=== PATIENT | female | born 1950 | race Caucasian/White ===

== ENCOUNTER 2020-02-20 10:11 | Inpatient (IN) | payer OTHER, MEDICAID, SELFPAY ==
[~2020-02-20] VITALS: Ht 172.7 cm; Wt 72.6 kg
[2020-02-20 10:11] VITALS: BP_SYST 146
--- NOTE | 2020-02-20 10:40 | NUR ---
Pt bib EMS from home with c/o headache and pressure x 1 year, increasing this week. Reports being seen by ENT and it hasn't gotten better. States she tested positive for covid 1 week ago. V/S stable, pt is afebrile. Currently resting in bed, will continue to monitor.
--- NOTE | 2020-02-20 10:45 | NUR ---
ER Dr. Navarrete at bedside examining patient.
--- NOTE | 2020-02-20 10:50 | NUR ---
Respiratory at bedside for ABG
--- NOTE | 2020-02-20 10:55 | NUR ---
# 20 gauge angiocath placed to LAC. Use of asceptic technique. Opsite placed over site. Blood return noted. Blood for lab drawn from site. Flushed with 10 cc of normal saline. No evidence of infiltration noted. Patient tolerated well.
[2020-02-20] MEDS ORDERED: LORazepam 2 MG/ML VIAL IVP ONE (11:00)
[2020-02-20] MEDS ORDERED: KETOROLAC TROMETHAMINE 30 MG VIAL IVP ONE (11:00)
[2020-02-20] MEDS ORDERED: NACL 0.9% 500 ML IV ONE (11:00)
--- NOTE | 2020-02-20 11:22 | NUR ---
Radiology at bedside for CXR
[2020-02-20 11:31] LABS: BASOPHILS # (AUTO) 0.2 K/uL (0.0-0.2); BASOPHILS % (AUTO) 2.3 % (0.0-2.0); EOSINOPHILS % (AUTO) 0.6 % (0.0-4.0); HEMATOCRIT 38.2 % (36-48); HEMOGLOBIN 13.1 g/dL (12.0-16.0); LYMPHOCYTES % (AUTO) 12.5 % (20.5-51.5); MEAN CORPUSCULAR HEMOGLOBIN 33 pg (27-31); MEAN CORPUSCULAR HGB CONC 34 % (32-36); MEAN CORPUSCULAR VOLUME 96 fL (79.0-98.0); MONOCYTES # (AUTO) 0.7 K/uL (0.0-1.0); MONOCYTES % (AUTO) 8.4 % (1.7-9.3); NEUTROPHILS # (AUTO) 6.3 K/uL (1.8-7.7); NEUTROPHILS % (AUTO) 76.2 % (40.0-70.0); PLATELET COUNT (AUTO) 230 K/uL (130-430); RED BLOOD CELL COUNT(AUTO) 3.97 MIL/uL (4.2-6.2); WHITE BLOOD COUNT (AUTO) 8.3 K/uL (4.8-10.8)
[2020-02-20 11:33] LABS: CREATININE 0.99 mg/dL (0.55-1.30); POTASSIUM 3.1 mmol/L (3.5-5.1)
[2020-02-20 11:38] LABS: INR 1.1 (0.8-1.2); PROTHROMBIN TIME 11.2 SECS (9.5-12.5)
[2020-02-20 11:40] LABS: ALBUMIN 2.9 g/dL (3.4-4.8); TOTAL BILIRUBIN 0.7 mg/dL (0.0-1.0)
[2020-02-20 11:52] LABS: BILIRUBIN,URINE NEGATIVE (NEGATIVE); BLOOD, URINE 2+ (NEGATIVE); CLARITY/URINE SL CLOUDY (CLEAR); COLOR,URINE YELLOW (YELLOW); GLUCOSE,URINE NEGATIVE (NEGATIVE); KETONES,URINE NEGATIVE (NEGATIVE); LEUKOCYTE ESTERASE ,URINE 3+ (NEGATIVE); NITRITE, URINE NEGATIVE (NEGATIVE); PROTEIN URINE TRACE (NEGATIVE); UROBILINOGEN,URINE 0.2 (0.2-1.0)
[2020-02-20] MEDS ORDERED: LOSA25TA3 PO (11:57)
[2020-02-20] MEDS ORDERED: ASA81 PO (11:57)
[2020-02-20] MEDS ORDERED: RIVA10TA PO (11:57)
[2020-02-20] MEDS ORDERED: CARV6.2554 PO (11:57)
[2020-02-20] MEDS ORDERED: LORA10TA7 PO (11:57)
[2020-02-20] MEDS ORDERED: LIP10 PO (11:57)
[2020-02-20] MEDS ORDERED: MECL-97 PO (11:57)
[2020-02-20] MEDS ORDERED: MONT10TA22 PO (11:57)
[2020-02-20] MEDS ORDERED: HYDR12.55 PO (11:57)
--- NOTE | 2020-02-20 11:58 | NUR ---
Med rec and belongings list completed
[2020-02-20 12:14] LABS: C-REACTIVE PROTEIN QUANT 15.2 mg/dL (0-0.5)
[2020-02-20 12:14] LABS: BACTERIA,URINE FEW /HPF (None Seen); WBC,URINE 20-50 /HPF (0-3)
[2020-02-20] MEDS ORDERED: AZITHROMYCIN 500 MG in NS 250 ML IV ONE (12:15)
[2020-02-20] MEDS ORDERED: DEXAMETHASONE SOD PHOSPHATE 10 MG/ML VIAL IVP ONE (12:15)
[2020-02-20] MEDS ORDERED: AZITHROMYCIN 500 MG/VIAL (ZITHROMAX) IV ONE (12:20)
[2020-02-20] MEDS ORDERED: POTASSIUM CHLORIDE 10 MEQ TAB.PRT.SR PO ONE (14:15)
[2020-02-20] MEDS ORDERED: LEVOFLOXACIN 500 MG/D5W 100 ML IV ONE (14:30)
[2020-02-20] MEDS: NACL 0.9% 1,000 ML IV SCH (14:30)
--- NOTE | 2020-02-20 14:31 | NUR ---
Admit orders received from Dr. Taylor, pt to go to med-surg, isolation. Called the floor for bed assignment, charge nurse is busy and will call me back.
--- NOTE | 2020-02-20 15:34 | NUR ---
Patient will be admitted to care of Dr. Taylor. Admitted to med-surg unit. Will go to room 126A. Belongings list completed. Complete and up to date summary report printed. SBAR report to be given at bedside with opportunity for questions. IV site intact and patent.
--- NOTE | 2020-02-20 15:45 | NUR ---
CONSULTATION PAGED/CALLED Reason for Consultation: [] COVID, PNA Person Who was Notified: [] PAGED PULMO SAWMILL HAND DR RENDON DIRECTLY Consulting Physician: [] DR RENDON,A Process Server Specialty: [] PULMO Ordering Physician: [] DR ARANDA
--- NOTE | 2020-02-20 15:46 | NUR ---
CONSULTATION PAGED/CALLED Reason for Consultation: [] COVID PNA Person Who was Notified: [] CRISTAL Consulting Physician: [] DR STERLING Forensic Structural Engineer Specialty: [] PNA Ordering Physician: [] DR ARANDA
[2020-02-20 16:00] VITALS: BP_SYST 136
[2020-02-20] MEDS ORDERED: ENOXAPARIN SODIUM 30 MG/0.3 ML SYRINGE SUBCUT ONE (16:00)
[2020-02-20] MEDS ORDERED: ASCORBIC ACID 500 MG TABLET PO ONE (16:00)
[2020-02-20] MEDS ORDERED: CHOLECALCIFEROL (VITAMIN D3) 2,000 UNIT TABLET PO ONE (16:00)
--- NOTE | 2020-02-20 16:00 | NUR ---
ADMISSION: The patient, MAX BLANCA, 69 y/o, F admitted by SHANNA ARANDA MD, was given written information regarding hospital policies, unit procedures and contact persons. Obtained VS, started IVF's as ordered, administered medications as directed.
[2020-02-20] MEDS: cefTRIAXone 1 GM IVPB PREMIX 50 ML IV SCH (16:58)
--- NOTE | 2020-02-20 17:10 | NUR ---
md call Dr. Taylor on the phone with the patient
[2020-02-20] MEDS ORDERED: ASPIRIN 81 MG TAB.CHEW PO ONE (18:00)
[2020-02-20] MEDS ORDERED: MONTELUKAST 10 MG TABLET PO ONE (18:00)
[2020-02-20] MEDS ORDERED: LOSARTAN POTASSIUM 25 MG TABLET PO ONE (18:00)
[2020-02-20] MEDS ORDERED: MECLIZINE HCL 25 MG TABLET (ANITVERT) PO ONE (18:00)
[2020-02-20] MEDS ORDERED: LORATADINE 10 MG TABLET PO ONE (18:00)
--- NOTE | 2020-02-20 18:00 | NUR ---
Nurse note Patient in bed, provided with dinner, administered medications, bed in low and locked position, call light within reach, bed alarm on,
--- NOTE | 2020-02-20 19:20 | NUR ---
Closing note Provided SBAR to night RN, patient in bed, respirations even, non labored, bed in low and locked position, call light within reach, bed alarm on. IVF's running as ordered. Endorsed care to night RN
[2020-02-20 19:50] VITALS: BP_SYST 121
--- NOTE | 2020-02-20 19:50 | NUR ---
INITIAL NOTE AT INITIAL ASSESSMENT, PATIENT IS RESTING IN BED, STABLE, NO SIGNS OF RESPIRATORY DISTRESS. PATIENT VERBALIZES NO PAIN. PLAN OF CARE FOR THE EVENING IS COMMUNICATED WITH THE PATIENT. PATIENT DEMONSTRATES CORRECT USAGE OF CALL LIGHT AT THIS TIME. BED IS LOCKED, ALARMED, AND AT THE LOWEST LEVEL. FALL SAFETY EDUCATION PROVIDED. FALL, SAFETY, ASPIRATION, ISOLATION, AND RESPIRATORY PRECAUTIONS WILL BE TAKEN THROUGHOUT THE SHIFT.
[2020-02-20] MEDS: CARVEDILOL 6.25 MG TABLET (COREG) PO SCH (21:00)
[2020-02-20] MEDS: ATORVASTATIN 10 MG TABLET PO SCH (21:00)
[2020-02-21] VITALS: BP_SYST 118
[2020-02-21] MEDS: LORazepam 1 MG TABLET PO PRN ×2 (00:46→20:50)
[2020-02-21] MEDS: NACL 0.9% 1,000 ML IV SCH ×2 (04:12→17:10)
--- NOTE | 2020-02-21 06:15 | NUR ---
CLOSING NOTE NO HEADACHES TONIGHT, NO FEVER. PATIENT SLEPT WELL THROUGHOUT THE SHIFT, NO RESPIRATORY DISTRESS NOTED. AT THIS TIME, PATIENT IS RESTING IN BED, STABLE, NO SIGNS OF RESPIRATORY DISTRESS. CALL LIGHT IS WITHIN REACH. BED IS LOCKED, ALARMED, AND AT THE LOWEST LEVEL. FALL, SAFETY, ASPIRATION, ISOLATION, AND RESPIRATORY PRECAUTIONS HAVE BEEN TAKEN THROUGHOUT THE SHIFT. WILL CONTINUE TO MONITOR UNTIL SHIFT REPORT IS GIVEN AT BEDSIDE TO AM NURSE.
[2020-02-21 07:08] LABS: BASOPHILS % (AUTO) 0.4 % (0.0-2.0); HEMATOCRIT 35.9 % (36-48); HEMOGLOBIN 12.4 g/dL (12.0-16.0); LYMPHOCYTES # (AUTO) 0.8 K/uL (1.0-5.5); LYMPHOCYTES % (AUTO) 11.9 % (20.5-51.5); MEAN CORPUSCULAR HEMOGLOBIN 33 pg (27-31); MEAN CORPUSCULAR HGB CONC 34 % (32-36); MEAN CORPUSCULAR VOLUME 97 fL (79.0-98.0); MONOCYTES # (AUTO) 0.3 K/uL (0.0-1.0); NEUTROPHILS # (AUTO) 5.3 K/uL (1.8-7.7); NEUTROPHILS % (AUTO) 82.7 % (40.0-70.0); PLATELET COUNT (AUTO) 235 K/uL (130-430); RED BLOOD CELL COUNT(AUTO) 3.72 MIL/uL (4.2-6.2); RED CELL DISTRIBUTION WIDTH 12.8 % (9.0-15.0); WHITE BLOOD COUNT (AUTO) 6.4 K/uL (4.8-10.8)
[2020-02-21 07:54] LABS: ALBUMIN 2.5 g/dL (3.4-4.8); CALCIUM 7.7 mg/dL (8.4-11.0); CREATININE 0.71 mg/dL (0.55-1.30); POTASSIUM 3.8 mmol/L (3.5-5.1); TOTAL BILIRUBIN 0.3 mg/dL (0.0-1.0)
[2020-02-21 08:15] VITALS: BP_SYST 153
[2020-02-21 08:15] LABS: C-REACTIVE PROTEIN QUANT 13.9 mg/dL (0-0.5)
--- NOTE | 2020-02-21 08:30 | NUR ---
ASSUMPTION OF CARE: RECEIVED PT A/A/OX4, DX:INADEQUATE VENTILATION, R/T COVID-19, AFEBRILE, NO S/S OF DISTRESS, BREATH SOUNDS ARE CLEAR, BREATH UNLABORED, O2 SAT=95% WHILE ON 2L NC, IV SITE INTACT, PATENT, NO REDNESS OR SWELLING, ORIENTED TO UNIT, BRP, CALL LIGHT WITHIN REACH, WILL CONT' TO MONITOR AND ASSESS.
[2020-02-21] MEDS ORDERED: ASCORBIC ACID 500 MG TABLET PO SCH (09:00)
[2020-02-21] MEDS ORDERED: CHOLECALCIFEROL (VITAMIN D3) 2,000 UNIT TABLET PO SCH (09:45)
[2020-02-21] MEDS ORDERED: ASCORBIC ACID 500 MG TABLET PO ONE (09:45)
[2020-02-21] MEDS: DEXAMETHASONE SOD PHOSPHATE 10 MG/ML VIAL IVP SCH (09:51)
[2020-02-21] MEDS: ASPIRIN 81 MG TAB.CHEW PO SCH (09:51)
[2020-02-21] MEDS: MECLIZINE HCL 25 MG TABLET (ANITVERT) PO SCH (09:51)
[2020-02-21] MEDS: LORATADINE 10 MG TABLET PO SCH (09:52)
[2020-02-21] MEDS: MONTELUKAST 10 MG TABLET PO SCH (09:53)
[2020-02-21] MEDS: LOSARTAN POTASSIUM 25 MG TABLET PO SCH (09:53)
[2020-02-21] MEDS: CARVEDILOL 6.25 MG TABLET (COREG) PO SCH ×2 (09:53→21:00)
[2020-02-21] MEDS: ENOXAPARIN SODIUM 30 MG/0.3 ML SYRINGE SUBCUT SCH (09:54)
[2020-02-21] MEDS: CHOLECALCIFEROL (VITAMIN D3) 2,000 UNIT TABLET PO SCH (09:54)
[2020-02-21 12:00] VITALS: BP_SYST 148
[2020-02-21] MEDS: AZITHROMYCIN 500 MG in NS 250 ML IV SCH (12:36)
[2020-02-21 16:00] VITALS: BP_SYST 150
[2020-02-21] MEDS: cefTRIAXone 1 GM IVPB PREMIX 50 ML IV SCH (16:00)
--- NOTE | 2020-02-21 17:15 | NUR ---
TRANSFUSION: FFP TRANSFUSING AT THIS TIE, PT IS ALERT/AFEBRILE, NO S/S OF DISTRESS, VSS, CALL LIGHT WITHIN REACH, WILL CONT' TO MONITOR AND ASSESS.
[2020-02-21 19:50] VITALS: BP_SYST 149
--- NOTE | 2020-02-21 20:10 | NUR ---
PAGED DR. ALONSO FOR PATIENT FOR ORDERS. I SPOKE WITH FABIEN.
--- NOTE | 2020-02-21 20:14 | NUR ---
HIGH ALERT NOTE: Called Dr. ALONSO back at identified within the medical roster to verify physician authenticity.
[2020-02-21] MEDS: ATORVASTATIN 10 MG TABLET PO SCH (21:00)
[2020-02-21] MEDS: guaiFENesin 200 MG/CODEINE 20 MG/ 10 ML UDC PO PRN (21:30)
[2020-02-22] VITALS: BP_SYST 155
[2020-02-22] MEDS: guaiFENesin 200 MG/CODEINE 20 MG/ 10 ML UDC PO PRN (06:50)
[2020-02-22] MEDS: NACL 0.9% 1,000 ML IV SCH ×2 (07:01→19:50)
[2020-02-22 08:10] VITALS: BP_SYST 159
--- NOTE | 2020-02-22 08:10 | NUR ---
INITIAL ROUNDS Received pt AAOx4, no s/s resp distress, noted sporadic cough at times. No c/o pain or discomfort. Pt on Airborne and Droplet isolation precautions for Covid 19+. IVF infusing well to left arm at ordered rate with no s/s infiltration to site. Plan of care for the day reviewed with pt-pt verbalized her understanding. Pain management, disease process, skin and safety discussed-teach back done. Call light within reach.
[2020-02-22] MEDS: CARVEDILOL 6.25 MG TABLET (COREG) PO SCH ×2 (09:54→22:57)
[2020-02-22] MEDS: LORATADINE 10 MG TABLET PO SCH (09:54)
[2020-02-22] MEDS: MONTELUKAST 10 MG TABLET PO SCH (09:55)
[2020-02-22] MEDS: CHOLECALCIFEROL (VITAMIN D3) 2,000 UNIT TABLET PO SCH (09:55)
[2020-02-22] MEDS: LOSARTAN POTASSIUM 25 MG TABLET PO SCH (09:56)
[2020-02-22] MEDS: MECLIZINE HCL 25 MG TABLET (ANITVERT) PO SCH (09:57)
[2020-02-22] MEDS: DEXAMETHASONE SOD PHOSPHATE 10 MG/ML VIAL IVP SCH (09:57)
[2020-02-22] MEDS: ASPIRIN 81 MG TAB.CHEW PO SCH (09:57)
[2020-02-22] MEDS: ASCORBIC ACID 500 MG TABLET PO SCH (10:00)
[2020-02-22] MEDS: ENOXAPARIN SODIUM 30 MG/0.3 ML SYRINGE SUBCUT SCH (10:01)
[2020-02-22] MEDS: AZITHROMYCIN 500 MG in NS 250 ML IV SCH (12:27)
--- NOTE | 2020-02-22 13:11 | NUR ---
Dietitian Recommendations *Record PO intake q meal per nursing staff. *Recommend: monitor BG, if BG continues to trend up, consider CCHO diet. *Consider adding ONS if PO is inadequate. *Continue immune boosters. Please see Nutritional Assessment for details. MARGARITA VICTOR
--- NOTE | 2020-02-22 14:42 | NUR ---
ROUNDS Pt resting quietly in bed with no s/s resp distress, no c/o pain or discomfort. Pt given fresh ice water. All precautions remain in place. Needs met, call light within reach.
[2020-02-22] MEDS: cefTRIAXone 1 GM IVPB PREMIX 50 ML IV SCH (16:08)
[2020-02-22 16:30] VITALS: BP_SYST 138
--- NOTE | 2020-02-22 19:10 | NUR ---
CLOSING NOTE Pt sitting up in bed watching television with no c/o shortness of breath, still with sporadic cough. No c/o pain or discomfort. Airborne and droplet isolation precautions maintained throughout shift. Call light within reach.
--- NOTE | 2020-02-22 19:15 | NUR ---
OPENING NOTES PATIENT IS RESTING, NO SIGNS OF ACUTE RESPIRATORY DISTRESS NOTED, 1.5 L NC. IV SITE PATENT, DRESSINGS C/D/I, IVF RUNNING. CALL LIGHT WITHIN REACH, BED ALARM REFUSED AFTER PROPER CALL LIGHT USAGE DEMONSTRATED. WILL CONTINUE TO MONITOR.
[2020-02-22 20:00] VITALS: BP_SYST 152
[2020-02-22] MEDS: ATORVASTATIN 10 MG TABLET PO SCH (22:57)
[2020-02-23] VITALS (7 sets, daily range): BP systolic 128–169
[2020-02-23] MEDS: LORazepam 1 MG TABLET PO PRN (00:15)
--- NOTE | 2020-02-23 01:44 | NUR ---
PATIENT IS RESTING, NO SIGNS OF ACUTE RESPIRATORY DISTRESS NOTED, 2L NC. CALL LIGHT WITHIN REACH, TELEVISION STILL ON. WILL CONTINUE TO MONITOR.
--- NOTE | 2020-02-23 07:07 | NUR ---
CLOSING NOTES PATIENT IS RESTING, NO SIGNS OF ACUTE RESPIRATORY DISTRESS NOTED, 2 L NC. IV SITE PATENT, DRESSINGS C/D/I, IVF RUNNING. CALL LIGHT WITHIN REACH, BED ALARM REFUSED AFTER PROPER CALL LIGHT USAGE DEMONSTRATED. ALL NEEDS MET THROUGHOUT SHIFT. WILL ENDORSE CARE TO ONCOMING SHIFT. COVID ISOLATION PRECAUTIONS MAINTAINED THROUGHOUT SHIFT.
--- NOTE | 2020-02-23 07:32 | NUR ---
Opening Note received SBAR report from gravel weigher RN, patient resting in bed, respirations even and unlabored on 2L nasal cannula, no acute distress noted, educated patient on use of call light and asked to call for assistance, patient verbalized understanding, call light in reach, educated patient on use of bed alarm for patient safety, patient verbalized understanding, patient refusing bed alarm, bed in low and locked position.
[2020-02-23] MEDS: ASPIRIN 81 MG TAB.CHEW PO SCH (08:15)
[2020-02-23] MEDS: DEXAMETHASONE SOD PHOSPHATE 10 MG/ML VIAL IVP SCH (08:15)
[2020-02-23] MEDS: MONTELUKAST 10 MG TABLET PO SCH (08:16)
[2020-02-23] MEDS: MECLIZINE HCL 25 MG TABLET (ANITVERT) PO SCH (08:16)
[2020-02-23] MEDS: CHOLECALCIFEROL (VITAMIN D3) 2,000 UNIT TABLET PO SCH (08:16)
[2020-02-23] MEDS: LORATADINE 10 MG TABLET PO SCH (08:20)
[2020-02-23] MEDS: ASCORBIC ACID 500 MG TABLET PO SCH (08:21)
[2020-02-23] MEDS: NACL 0.9% 1,000 ML IV SCH ×2 (08:41→21:34)
[2020-02-23] MEDS: CARVEDILOL 6.25 MG TABLET (COREG) PO SCH ×2 (08:41→21:34)
[2020-02-23] MEDS: LOSARTAN POTASSIUM 25 MG TABLET PO SCH (08:41)
[2020-02-23] MEDS: ENOXAPARIN SODIUM 30 MG/0.3 ML SYRINGE SUBCUT SCH (08:45)
--- NOTE | 2020-02-23 09:47 | NUR ---
Nutrition Update Christian scale 16 noted. Pt admitted for Covid, isolation Diet: Cardiac Diet BMI: 24.3 kg/m2 RD to follow per nutrition care standards.
--- NOTE | 2020-02-23 11:18 | NUR ---
Spoke with Physician per patient she has orders for a CT of the kidneys from her primary care physician, she would like to have that test done at the hospital before she is discharged home, informed Dr. Joyce, per Dr. Joyce a CT kidney is not indicated per this visit and she will have to have the test done outpatient as ordered, informed patient, patient verbalized understanding, Dr. Joyce speaking with patient.
[2020-02-23] MEDS ORDERED: DEC4 PO (11:21)
[2020-02-23] MEDS ORDERED: DOXY100T2 PO (11:21)
--- NOTE | 2020-02-23 11:23 | NUR ---
Discharge planning spoke with Lennie from [facility] , informed her of orders to discharge home with home oxygen 2L nasal cannula, per Lennie she will set up for home oxygen, she states that it will likely be delivered by this afternoon, awaiting for home oxygen before patient can be discharged home.
[2020-02-23] MEDS: AZITHROMYCIN 500 MG in NS 250 ML IV SCH (11:28)
--- NOTE | 2020-02-23 12:25 | NUR ---
RN rounds patient sitting up in bed eating lunch, tolerating well, patient denies any nausea or vomiting, no acute distress noted.
--- NOTE | 2020-02-23 14:28 | NUR ---
RN Rounds] patient resting in bed, respirations even and unlabored on 2L nasal cannula, no acute distress noted, patient denies any pain or shortness of breath.
[2020-02-23] MEDS: cefTRIAXone 1 GM IVPB PREMIX 50 ML IV SCH (16:44)
[2020-02-23] MEDS: guaiFENesin 200 MG/CODEINE 20 MG/ 10 ML UDC PO PRN (16:51)
--- NOTE | 2020-02-23 17:10 | NUR ---
Physician Rounds Dr. Duke at bedside examining patient.
--- NOTE | 2020-02-23 17:17 | NUR ---
Spoke with Physician spoke with Dr. Joyce, informed him that patients current BP is 169/102, HR 79, informed him that case management is arranging for home oxygen so that patient can be discharged home, new medication orders received, verified with read back.
[2020-02-23] MEDS ORDERED: cloNIDine HCL 0.1 MG TABLET ONE (17:21)
[2020-02-23] MEDS ORDERED: cloNIDine HCL 0.1 MG TABLET PO ONE (17:30)
--- NOTE | 2020-02-23 18:03 | NUR ---
called lab called lab regarding COVID PCR results, per lab the results are still pending, informed patient.
--- NOTE | 2020-02-23 18:05 | NUR ---
Home Oxygen portable oxygen tank was delivered to hospital and taken to patient, per patient she received a call from the home oxygen company and they have not yet delivered the home oxygen to the patients home, per patient they stated that they will drop it off on the porch and the patient will have to move the home oxygen machine inside and set it up independently, patient states that she will physically be unable to do so and dose not have assistance at home, called case preparer and liner Lennie from HCP, message left, awaiting call back, informed recharger.
--- NOTE | 2020-02-23 19:01 | NUR ---
Home Oxygen per patient she has a friend that will be able to receive the home oxygen delivery, per patient she attempted to call [facility] to inform them that her friend will be available, she is awaiting call back, RN called [facility] , message left for Lay, awaiting call back.
--- NOTE | 2020-02-23 19:04 | NUR ---
Closing Note SBAR report given to receiving RN, patient resting in bed, respirations even and unlabored on 2L nasal cannula, no acute distress noted, patient denies any pain, Addendum: 02/23/20 at 1905 by Celeste Norman RN add to above note: educated patient on use of call light and asked to call for assistance, patient verbalized understanding, call light in reach, educated patient on use of bed alarm for patient safety, patient verbalized understanding, patient refusing bed alarm, bed in low and locked position.
--- NOTE | 2020-02-23 19:45 | NUR ---
OPENING NOTE RECEIVED PATIENT AWAKE, AOX4. WATCHING TV WITH NO SIGNS OF DISTRESS NOTED. RESPIRATIONS EVEN AND UNLABORED ON OXYGEN 2LPM VIA NC. IV SITE PATENT AND INTACT WITH O SIGNS OF INFILTRATION NOTED. SAFETY, FALL, AND ISOLATION PRECATIONS IN PLACE. BED LOCKED IN LOW POSITION WITH CALL LIGHT IN REACH.
[2020-02-23] MEDS: ATORVASTATIN 10 MG TABLET PO SCH (21:34)
[2020-02-24 04:00] VITALS: BP_SYST 130
--- NOTE | 2020-02-24 06:15 | NUR ---
CLOSING NOTE PATIENT AWAKE IN BED. AMBULATES STEADILY TO RESTROOM. PATIENT STATES SHE SPOKE WITH HER NEIGHBOR AND HOME OXYGEN STILL HAS OT BEEN DELIVERED. PATIENT STATES NEIGHBOR WILL PICK HER UP FROM HOSPITAL ONCE HOME OXYGEN IS DELIVERED AND PATIENT RECEIVES RESULTS OF PCR TEST. WILL ENDORSE TO AM NURSE. RESPIRATIONS REMAIN EVEN AND UNLABORED ON OXYGEN 2LPM VIA NC. SAFETY, FALL, AND ISOLATION PRECAUTIONS MAINTAINED. PATIENT STABLE AT THIS TIME. BED LOCKED IN LOW POSITION, WITH CALL LIGHT IN REACH. WILL CONTINUE TO MONITOR UNTIL ENDORSED TO AM NURSE.
--- NOTE | 2020-02-24 07:34 | NUR ---
Opening Note received SBAR report from night manager RN, patient resting in bed, respirations even and unlabored on 2L nasal cannula, no acute distress noted, educated patient on use of call light and asked to call for assistance, patient verbalized understanding, call light in reach, educated patient on use of bed alarm for patient safety, patient verbalized understanding, patient refusing bed alarm, bed in low and locked position.
[2020-02-24] MEDS: MONTELUKAST 10 MG TABLET PO SCH (08:03)
[2020-02-24] MEDS: MECLIZINE HCL 25 MG TABLET (ANITVERT) PO SCH (08:03)
[2020-02-24] MEDS: ASPIRIN 81 MG TAB.CHEW PO SCH (08:03)
[2020-02-24] MEDS: CHOLECALCIFEROL (VITAMIN D3) 2,000 UNIT TABLET PO SCH (08:04)
[2020-02-24] MEDS: DEXAMETHASONE SOD PHOSPHATE 10 MG/ML VIAL IVP SCH (08:04)
[2020-02-24] MEDS: ENOXAPARIN SODIUM 30 MG/0.3 ML SYRINGE SUBCUT SCH (08:08)
[2020-02-24] MEDS: LORATADINE 10 MG TABLET PO SCH (08:08)
[2020-02-24] MEDS: ASCORBIC ACID 500 MG TABLET PO SCH (08:08)
[2020-02-24] MEDS: guaiFENesin 200 MG/CODEINE 20 MG/ 10 ML UDC PO PRN (08:08)
[2020-02-24 08:29] VITALS: BP_SYST 165
[2020-02-24] MEDS: CARVEDILOL 6.25 MG TABLET (COREG) PO SCH (08:29)
[2020-02-24] MEDS: LOSARTAN POTASSIUM 25 MG TABLET PO SCH (08:29)
--- NOTE | 2020-02-24 09:40 | NUR ---
RN Rounds patient sitting up in bed, tolerated breakfast well, patient denies any nausea or vomiting, patient ambulated to bathroom, voided x1, steady gait noted, patient completes toileting independently, patient ambulated back to bed, patient resting in bed.
--- NOTE | 2020-02-24 09:55 | NUR ---
Discharge Planning spoke with Lennie from [facility], informed her that the portable oxygen tank was delivered to the hospital yesterday, informed her that home oxygen has not yet been delivered, per Lennie the patient can be discharged home with the portable O2 tank as this will last 6 hours, per Lennie she is contacting [employer] and they will deliver the home oxygen within two hours. Addendum: 02/24/20 at 1007 by Celeste Norman RN informed patient, per patient she is contacting her friend for transport home.
--- NOTE | 2020-02-24 11:00 | NUR ---
Pharmacy patient requesting to have prescription faxed to preferred pharmacy [facility] in [place], faxed prescription to patients preferred pharmacy , provided patient with original written prescription.
--- NOTE | 2020-02-24 11:05 | NUR ---
Education educated patient on how to turn dial on portable oxygen tank so that two liters nasal cannula is being given, patient returned demonstration.
--- NOTE | 2020-02-24 11:16 | NUR ---
Discharge provided patient with discharge packet and instructions, informed patient that COVID-19 PCR results are still pending and that patient can follow up for results, patient verbalized understanding, written prescription provided, IV catheters removed from left forearm and left AC, catheter intact, no bleeding, no acute distress noted, patient denies any pain, all belongings sent with patient, patient discharged home on 2L nasal cannula portable oxygen, patient taken to parking lot via wheelchair, called Lennie from HCP and informed her that patient was discharged, per Lennie she is contacting [facility] and the home oxygen will be delivered now.
--- NOTE | 2020-02-24 14:53 | NUR ---
Patient was called and notified her COVID-19 "Positive" PCR result. Patient was instructed to follow home isolation instructions and universal source control once isolation period have ended. Patient verbalizes understanding.
--- NOTE | 2020-02-25 13:11 | NUR ---
Discharge Follow Up Phone Call Phoned patient, . Patient stated that she was improving. She does not like using her O2 but will use it periodically as much as she can. She does not have a pulse oximeter. Recommended she discuss further with her PCP. Patient has a telephone follow up appointment scheduled with her PCP for next week. She filled her prescriptions and is taking her medications as directed. She lives alone but has a neighbor checking on her. No other questions or concerns.
== END 2020-02-24 11:15 | disposition home or self-care (01) | DRG 177 ==
LOC: SED 10:11 → SMU 14:22
PROVIDERS: ADMIT Internal Medicine Hospice and Palliative Medicine; ATTEND Internal Medicine Hospice and Palliative Medicine
PROC: XW13325 Transfusion of Convalescent Plasma (Nonautologous) into Peripheral Vein, Percutaneous Approach, New Technology Group 5 (ICD-10-PCS; principal; 2020-02-21)
DX: U07.1 COVID-19 (principal); J96.01 Acute respiratory failure with hypoxia; J12.9 Viral pneumonia, unspecified; N39.0 Urinary tract infection, site not specified; D72.810 Lymphocytopenia; E78.5 Hyperlipidemia, unspecified; I11.9 Hypertensive heart disease without heart failure; B96.20 Unspecified Escherichia coli [E. coli] as the cause of diseases classified elsewhere; E78.00 Pure hypercholesterolemia, unspecified; Z79.899 Other long term (current) drug therapy; Z79.82 Long term (current) use of aspirin
CPT/HCPCS: 36415; 71045; 80053; 81000-TC; 82550-TC; 82728; 82803-TC; 83605; 83615-TC; 83880; 84484; 85025; 85379; 85384-TC; 85610-TC; 85730-TC; 86140; 86886; 86900; 86901; 87040-TC; 87086; 93005; 96361; 96365; 96375; 99291; J0456; J0696; J1100; J1650; J1885; J2060; J7050; J8597; P9017; U0003

== ENCOUNTER 2022-09-07 06:07 | Emergency (ER) | payer OTHER, MEDICAID ==
[~2022-09-07] VITALS: Ht 160 cm; Wt 79.4 kg
[~2022-09-07 06:07] MED LIST: ASA81 PO; CARV6.2554 PO; DEC4 PO; DOXY100T2 PO; HYDR12.55 PO; LIP10 PO; LORA10TA7 PO; LOSA25TA3 PO; MECL-103 PO; MONT-47 PO; RIVA10TA PO
[2022-09-07 06:09] VITALS: BP_SYST 145
--- NOTE | 2022-09-07 06:15 | NUR ---
PATIENT AMBULATORY TO ER C/O FLANK PAIN AND DIARRHEA PLACE IN ROOM 4, AWAITING FOR EDP FOR INITIAL ASSESSMENT
--- NOTE | 2022-09-07 06:30 | NUR ---
EDP AT BEDSIDE FOR INITIAL ASSESSMENT
[2022-09-07 07:05] LABS: BASOPHILS % (AUTO) 0.3 % (0.0-2.0); EOSINOPHILS # (AUTO) 0.1 K/uL (0.0-0.4); HEMATOCRIT 39.3 % (36-48); HEMOGLOBIN 13.1 g/dL (12.0-16.0); LYMPHOCYTES # (AUTO) 1.7 K/uL (1.0-5.5); LYMPHOCYTES % (AUTO) 13.5 % (20.5-51.5); MEAN CORPUSCULAR HEMOGLOBIN 33 pg (27-31); MEAN CORPUSCULAR HGB CONC 33 % (32-36); MEAN CORPUSCULAR VOLUME 99 fL (79.0-98.0); MONOCYTES # (AUTO) 0.9 K/uL (0.0-1.0); MONOCYTES % (AUTO) 6.7 % (1.7-9.3); NEUTROPHILS # (AUTO) 10.2 K/uL (1.8-7.7); NEUTROPHILS % (AUTO) 78.5 % (40.0-70.0); PLATELET COUNT (AUTO) 232 K/uL (130-430); RED BLOOD CELL COUNT(AUTO) 3.99 MIL/uL (4.2-6.2); RED CELL DISTRIBUTION WIDTH 13.4 % (9.0-15.0)
[2022-09-07 07:10] LABS: BLOOD, URINE 3+ (NEGATIVE); CLARITY/URINE CLOUDY (CLEAR); COLOR,URINE ORANGE (YELLOW); GLUCOSE,URINE TRACE (NEGATIVE); KETONES,URINE NEGATIVE (NEGATIVE); LEUKOCYTE ESTERASE ,URINE 1+ (NEGATIVE); NITRITE, URINE POSITIVE (NEGATIVE); PROTEIN URINE 3+ (NEGATIVE)
[2022-09-07 07:23] LABS: ANION GAP 11 (5-15); CALCIUM 8.6 mg/dL (8.4-11.0); CHLORIDE 102 mmol/L (98-107); CREATININE 0.86 mg/dL (0.55-1.30); GLUCOSE 138 mg/dL (70-99); UREA NITROGEN, BLOOD 8 mg/dL (8-21)
[2022-09-07 07:33] LABS: ALANINE AMINOTRANSFERASE 22 U/L (12-78); ALBUMIN 3.3 g/dL (3.4-4.8); AMYLASE 51 U/L (0-100); ASPARTATE AMINOTRANSFERASE 23 U/L (10-37); C-REACTIVE PROTEIN QUANT 1.1 mg/dL (0-0.5); LIPASE 70 U/L (73-393); TOTAL BILIRUBIN 0.7 mg/dL (0.0-1.0)
--- NOTE | 2022-09-07 07:34 | NUR ---
Recived pt from rail gang supervisor nurse. PT IN BED 4 on the monitor. pt bib self with a c/o 7 out of 10 flank pain. pt has a history of hypertension, hernia, and a left kidney reconstruction. pt states that she has been feeling pain while urinating and has passed blood clots while urinating. pt urine is dark brown/ with a reddish color. pt GCS of 15 eyes open spontaneously, pt is oriented to person, place, time, and situation, pt obeys commands. EYES ERICK and she wears glasses. pt has a history of tinnitus. pt skin is warm and intact pulses weak on left leg. pt denies chest pain but does feel sob pt rr 22 and 02 sat 95 on ra. pt breathing looks labored but no accessory muslces used. PT ABD is soft and pain stated while palpating lower abd. pt ambulates on her own and skin is intact. pt in room 4 on the monitor with one side rail up. plan of care continues.
[2022-09-07 07:35] LABS: BILIRUBIN,URINE NEGATIVE (NEGATIVE)
[2022-09-07 07:50] LABS: BACTERIA,URINE MODERATE /HPF (None Seen); RBC,URINE 50-80 /HPF (0-3)
[2022-09-07] MEDS ORDERED: cefTRIAXone 1 GM in LIDOCAINE 1%, 20 ML MDV 2.1 ML IM ONE (09:15)
[2022-09-07] MEDS ORDERED: NITR-85 PO (09:38)
[2022-09-07] MEDS ORDERED: IBUP-1969 PO (09:38)
[2022-09-07] MEDS ORDERED: ACET-2634 PO (10:14)
[2022-09-07 10:26] VITALS: BP_SYST 152
--- NOTE | 2022-09-07 10:26 | NUR ---
Patient given written and verbal discharge instructions and verbalizes understanding. ER MD discussed with patient the results and treatment provided. Patient in stable condition. ID arm band removed. Rx of Ibuprofen and Macrobid given. Patient educated on pain management and to follow up with PMD. Pain Scale 0/10 . Opportunity for questions provided and answered. Medication side effect fact sheet provided.
== END 2022-09-07 10:26 | disposition home or self-care (01) ==
LOC: SED 06:07
DX: N12 Tubulo-interstitial nephritis, not specified as acute or chronic (principal); R31.9 Hematuria, unspecified; R35.0 Frequency of micturition; I10 Essential (primary) hypertension; Z79.899 Other long term (current) drug therapy
CPT/HCPCS: 99285; 74176; 80053; 81000; 82150; 83690; 85025; 86140; 87086; 36415; 76376; 96372; 83605; J0696; J2001